=== PATIENT | male | born 1945 | race Caucasian/White ===

== ENCOUNTER 2018-10-20 14:33 | Inpatient (IN) ==
[2018-10-20 15:16] LABS: BASO# 0.03 X1000 (0.0-0.2); BASO% 0.4 % (0.0-0.8); EOS# 0.05 X1000 (0.0-0.7); EOS% 0.6 % (0.0-10.0); HEMATOCRIT 43.3 % (42.0-52.0); HEMOGLOBIN 13.9 g/dL (14.0-18.0); IMM GRAN# 0.01 X1000 (0.0-0.04); IMM GRAN% 0.1 % (0.0-0.5); LYMPH# 1.16 X1000 (1.2-3.4); LYMPH% 14.1 % (20.5-51.1); MCH 28.2 PG (27-31); MCHC 32.1 g/dL (33-37); MCV 87.8 FL (81-99); MONO# 0.64 X1000 (0.11-0.59); MONO% 7.8 % (1.7-9.3); MPV 10.5 FL (7.4-10.4); NEUT# 6.36 X1000 (1.4-6.5); PLT 258 X1000 (130-400); RBC 4.93 XMIL (4.7-6.1); RDW 13.5 % (11.5-14.5); WBC 8.25 X1000 (4.8-10.8)
[2018-10-20 15:48] LABS: ALBUMIN 4.9 g/dL (3.5-5.0); CALCIUM 9.4 mg/dL (8.8-10.2); CREATININE 1.6 mg/dL (0.7-1.2); POTASSIUM 4.6 mmol/L (3.5-5.1); TOTAL BILIRUBIN 0.6 mg/dL (0.20-1.00); TOTAL PROTEIN 8.4 g/dL (6.3-8.3)
[2018-10-20] MEDS ORDERED: SODIUM CHLORIDE 0.9% INJ ONE (16:02)
[2018-10-20] MEDS ORDERED: PHENERGAN IV ONE (16:02)
[2018-10-20] MEDS ORDERED: NS 1,000 ML IV ONE ×2 (16:03→17:06)
[2018-10-20 17:41] LABS: BILIRUBIN URINE NEGATIVE (NEGATIVE); BLOOD URINE 4+ (NEGATIVE); CLARITY CLEAR (CLEAR); COLOR YELLOW; GLUCOSE URINE NEGATIVE (NEGATIVE); KETONE URINE TRACE mg/dL (NEGATIVE); LEUKOCYTES URINE TRACE (NEGATIVE); NITRITE URINE NEGATIVE (NEGATIVE); PROTEIN URINE 2+(100 mg/dL) mg/dL (NEGATIVE); SP GRAVITY URINE 1.015; UROBILINOGEN URINE NORMAL
[2018-10-20 17:47] LABS: URINE BACTERIA 1+ /HFP; URINE CAST NONE SEEN /LPF; URINE EPITHELIAL CELLS <10 /HPF (<10); URINE RBC 20-40 /HPF (<10); URINE YEAST NONE SEEN /HPF
[2018-10-20 17:48] LABS: URINE CRYSTAL URIC ACID PRESENT /HPF; URINE SOURCE CLEAN CATCH
--- NOTE | 2018-10-20 18:57 | Diag Imaging Result Doc PS360 ---
EXAM: CT RENAL STONE SEARCH INDICATION: pain TECHNIQUE: This exam was performed using automated exposure control, adjustment of mA or kV according to patient size, and/or use of iterative reconstruction technique. COMPARISON: None. FINDINGS: The gallbladder, liver, and spleen are essentially unremarkable. The pancreas is atrophic and is grossly unremarkable, otherwise. The adrenal glands are unremarkable. The left kidney is atrophic. There are several prominent nonobstructing intrarenal stones on the left. There are no ureteral stones and there is no hydronephrosis. The urinary bladder is unremarkable. A penile prosthesis is noted. There are multiple distended loops of small bowel with air-fluid levels throughout the abdomen that is suspicious for bowel obstruction. The exact transition point is unclear but it is probably in the mid abdomen or the right lower quadrant. No definite focal bowel wall thickening is appreciated. The remainder of the GI tract is essentially unremarkable. No free abdominal gas or free fluid is identified. There is no evidence of acute osseous abnormality. IMPRESSION: 1.Multiple distended loops of small bowel with air-fluid levels suspicious for small bowel obstruction as described above. 2.Other incidental/nonacute findings detailed above. Electronically signed by José Manuel Merida 10/20/2018 6:55 PM
[2018-10-20] MEDS ORDERED: ZOFRAN IV ONE (19:35)
[2018-10-20] MEDS ORDERED: BLISTEX MEDICATED BERRY LIP BALM TOP ONE (22:18)
[2018-10-20] MEDS: NS 1,000 ML IV SCH (22:52)
[2018-10-20] MEDS: HUMALOG SUBQ SCH (22:52)
[2018-10-20 23:06] LABS: HEMOGLOBIN A1C 6.7 % (4.8-6.0)
--- NOTE | 2018-10-21 02:21 | HISTORY AND PHYSICAL ---
CHIEF COMPLAINT: Abdominal pain. HISTORY OF PRESENT ILLNESS: The patient is a 72-year-old male who presented to the hospital with nausea. No real vomiting. Had a bowel movement early this morning. Denied any blood in his stool. Has had some mild diarrhea. States symptoms began about 3 days ago with abdominal pain and nausea with right upper, right lower and left lower quadrant pain. It has continued to worsen. Today became severe and he came to the hospital. ALLERGIES: Rocephin, clindamycin, both causing rash. MEDICATIONS: Gabapentin 600 t.i.d., DiaBeta 10 b.i.d., has a history of being on Prinivil. PAST MEDICAL HISTORY: Hypertension, diabetes. He did have a history of some type of small-bowel issue years ago for which he had an exploratory laparotomy by Dr. Cook. 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 FAMILY HISTORY: Noncontributory. SOCIAL HISTORY: Patient is a long-time smoker, but stopped 1 year ago. Does not drink or use illicit substances. REVIEW OF SYSTEMS: As noted above. Denies any fevers, chills, cough, congestion. Denies headaches, blurred vision, change in vision. Denies any focalized numbness, tingling or weakness in his extremities. Denies dysuria, urinary frequency, urgency. Denies any constipation, melena, hematochezia. PHYSICAL EXAMINATION: VITAL SIGNS: Reviewed. Temperature 98.5 degrees, pulse 66, respiratory 18, BP 105/68, saturation 100% on room air. GENERAL: Patient is awake, alert. He is very pleasant. He is in no respiratory distress. HEENT: Normocephalic. NECK: Supple. CARDIOVASCULAR: Regular rate. CHEST: Clear. ABDOMEN: Soft, mildly distended. Decreased bowel sounds throughout. Mild diffuse tenderness. EXTREMITIES: Moves all extremities. No edema. NEUROLOGIC: No focal neurological changes. SKIN: Warm and dry. No rashes. LABORATORIES: CBC normal. CMP with a BUN at 33, creatinine 1.6, glucose 203. ASSESSMENT: 1. Small bowel obstruction with multiple distended loops of small bowel with air-fluid levels. 2. Diabetes with hyperglycemia. 3. Chronic renal insufficiency with a creatinine 1.6. Was actually 1.7 in August of 2015 which is the last we have on record. 4. Probable urinary tract infection with elevated white count and microscopic red blood cells in the urine. 5. Hypertension. PLAN: We will admit patient to the hospital, keep him NPO, sliding scale insulin. Check an A1c in the morning. Recheck his labs. Currently he has an NG tube. He notes that he feels much better after this was placed and we will follow. Patient currently is only on Norvasc for the blood pressure. With a history of diabetes, certainly should consider SONYA or ARB in the future. cc: Hood Carpenter MD
[2018-10-21] MEDS: ZOFRAN IV PRN ×4 (04:27→20:06)
[2018-10-21] MEDS: HUMALOG SUBQ SCH ×4 (06:32→20:06)
[2018-10-21 07:23] LABS: BASO# 0.01 X1000 (0.0-0.2); BASO% 0.1 % (0.0-0.8); EOS# 0.07 X1000 (0.0-0.7); HEMATOCRIT 38.8 % (42.0-52.0); HEMOGLOBIN 12.5 g/dL (14.0-18.0); LYMPH# 1.24 X1000 (1.2-3.4); LYMPH% 18.2 % (20.5-51.1); MCH 28.5 PG (27-31); MCHC 32.2 g/dL (33-37); MCV 88.4 FL (81-99); MONO% 7.3 % (1.7-9.3); MPV 10.9 FL (7.4-10.4); NEUT# 5.01 X1000 (1.4-6.5); NEUT% 73.4 % (42.2-75.2); PLT 193 X1000 (130-400); RBC 4.39 XMIL (4.7-6.1); RDW 13.6 % (11.5-14.5); WBC 6.83 X1000 (4.8-10.8)
[2018-10-21 07:37] LABS: CALCIUM 7.9 mg/dL (8.8-10.2); CREATININE 1.2 mg/dL (0.7-1.2); MAGNESIUM 1.8 mg/dL (1.5-2.7); POTASSIUM 4.7 mmol/L (3.5-5.1)
[2018-10-21] MEDS ORDERED: LEVAQUIN 500 MG/D5W 500 MG/100 ML IVPB IV SCH (09:45)
--- NOTE | 2018-10-21 10:11 | PROGRESS NOTE ---
DATE: 10/21/2018 SUBJECTIVE: The patient states that he wanted to go home. It took him pretty much all night to actually get his NG tube hooked up to suction and he had no output during the night but this morning, he has had a couple hundred milliliters out and he is feeling better. He has not had any more vomiting. He has had not had any more diarrhea. OBJECTIVE: Vital Signs: 98.4, 80, 18, 149/70, 98% saturated on room air. Physical Examination: General: The patient is alert, oriented, conversive, and appropriate. NG tube is in and appears to be suctioning some bilious fluid. Lungs: Clear. Cardiovascular: Regular. Abdomen: Slightly distended. Bowel sounds are present but they are high-pitched. There are scattered and diffuse. Extremities: No edema. Laboratory: White cell count 6.8, hematocrit 38.8. BUN 29, creatinine 1.2, blood sugar is 144. ASSESSMENT AND PLAN: 1. The patient either has an ileus or small-bowel obstruction which, in all honesty, seems to be resolving. I am going to keep him on low intermittent suction with bowel rest and intravenous fluids, and just monitor that. 2. The patient's blood sugar is being addressed with sliding scale insulin. 3. There is 4+ urine blood and some white cells and red cells present in the urine. Dr. Carpenter mentioned a possible infection. Urine culture was ordered by Dr. Bello in the emergency room at [facility]. I do not see any orders for empiric antibiotics. We are going to start some Rocephin and await culture results. cc: Mendel Mendoza MD
[2018-10-21] MEDS: NS 1,000 ML IV SCH (11:09)
[2018-10-21] MEDS: MORPHINE IV PRN ×3 (12:31→20:06)
[2018-10-21] MEDS ORDERED: CATAPRES-TTS-1 TD ONE (21:10)
[2018-10-22] MEDS: NS 1,000 ML IV SCH (03:38)
[2018-10-22] MEDS: MORPHINE IV PRN ×2 (03:40→06:42)
[2018-10-22] MEDS: ZOFRAN IV PRN (03:40)
[2018-10-22 07:02] VITALS: BP 145/50
[2018-10-22] MEDS: HUMALOG SUBQ SCH (07:51)
--- NOTE | 2018-10-23 09:10 | DISCHARGE SUMMARY ---
ADMISSION DATE: 10/20/2018 DISCHARGE DATE: 10/22/2018 DISCHARGE DIAGNOSES: 1. Small bowel obstruction. 2. Nausea and vomiting. 3. Diarrhea. 4. Abdominal pain. 5. Diabetes mellitus. 6. Medical noncompliance. HOSPITAL COURSE: This 73-year-old white male had a very rough night, and when the nurses came in this morning, his and he were quite livid and demanding to be discharged. When I arrived in the morning for rounds, they basically repeated the whole story about what a terrible night they had due to a noncompliant roommate, and generally complained about their overall treatment in the hospital starting back to the ER at [facility] and stemming to the floor. The patient stated to me "please order the nurse to take out this NG tube or I will take it out myself. I am done. I am going home". Despite my efforts to soothe the patient's temperatures and convince them to stay, he basically demanded discharge. I told him that I would discharge him home, but it was essentially against medical advice because I did not think that he was well enough to go home. Despite having an NG tube and having considerable liquids suctioned out, he continued to have an episode of vomiting yesterday. He had some abdominal pain. He had an episode of diarrhea, and he has not been passing gas. He has not eaten any food at the time of his demand for discharge. My exam at the time of discharge showed minimal bowel sounds, although his abdomen was much less distended, and was nontender to palpation in all ngo in multiple positions. Again, I tried to convince the patient to stay as I would like to document his ability to tolerate p.o. and normalization of bowel movements without any nausea. Never the less, nor the patient or his would hear any of this, and demanded discharge. I have discharged him home on his home medications. I am hopeful that he will continue without difficulty. He stated that if he had further difficulty he would likely "head [place] to the [place]". cc: Mendel Mendoza MD
== END 2018-10-22 09:55 | disposition home or self-care (01) | DRG 390 ==
LOC: P.ED 14:33 → SUATTDRO 20:34 → 4N 20:34
PROVIDERS: ADMIT Internal Medicine; ATTEND Internal Medicine